=== PATIENT | male | born 1990 | race Caucasian/White ===

== ENCOUNTER 2021-05-09 14:40 | Emergency (ER) | payer SELFPAY ==
[~2021-05-09] VITALS: Ht 185.4 cm; Wt 107.0 kg
[2021-05-09 14:49] VITALS: BP 140/86
--- NOTE | 2021-05-09 15:17 | NUR ---
PT C/O RIGHT SIDED FACIAL NUMBNESS AND RIGHT EYE PAIN SINCE THIS AM.
--- NOTE | 2021-05-09 15:33 | NUR ---
DR FONTENOT AT BEDSIDE
[2021-05-09] MEDS ORDERED: PRED20TA5 PO (15:45)
[2021-05-09 15:49] VITALS: BP 118/70
== END 2021-05-09 15:49 | disposition home or self-care (01) ==
LOC: MED 14:40
DX: G51.0 Bell's palsy (principal); Z98.890 Other specified postprocedural states
CPT/HCPCS: 99283